=== PATIENT | male | born 1940 | race Caucasian/White ===

== ENCOUNTER 2023-10-27 11:20 | Observation (INO) | payer OTHER, MEDICARE ==
[2023-10-27] MEDS ORDERED: Sodium Chloride 0.9% 10 ML Syringe FLUSH PRN (11:50)
[2023-10-27 12:03] LABS: BASOPHILS ABSOLUTE AUTO 0.04 K/uL (0.02-0.10); BASOPHILS PERCENT AUTO 0.6 % (0.0-0.5); EOSINOPHILS ABSOLUTE AUTO 0.06 K/uL (0.04-0.40); EOSINOPHILS PERCENT AUTO 0.9 % (1.0-5.0); HEMATOCRIT 44.3 % (40.0-54.0); HEMOGLOBIN 14.7 g/dL (13.0-18.0); LYMPHOCYTES ABSOLUTE AUTO 0.85 K/uL (1.50-4.00); LYMPHOCYTES PERCENT AUTO 12.8 % (20.0-40.0); MEAN CORPUSCULAR HEMOGLOBIN 30.6 pg (27.0-32.0); MEAN CORPUSCULAR HGB CONC 33.2 g/dL (31.0-35.0); MEAN CORPUSCULAR VOLUME 92 fL (76-96); MEAN PLATELET VOLUME 11.2 fL (6.0-10.0); NEUTROPHILS ABSOLUTE AUTO 5.29 K/uL (2.00-7.50); NEUTROPHILS PERCENT AUTO 79.7 % (45.0-70.0); PLATELET COUNT,PLT 142 K/uL (150-400); RED CELL DISTRIBUTION WIDTH 13.6 % (11.0-16.0); WHITE BLOOD CELL COUNT,WBC 6.6 K/uL (4.0-11.0)
[2023-10-27 12:17] LABS: A/G RATIO 0.9 (0.8-2.0); ALBUMIN 3.2 g/dL (3.4-5.0); ANION GAP 14.7 mmol/L (5.0-15.0); BILIRUBIN TOTAL 0.7 mg/dL (0.0-1.0); BUN/CREATININE RATIO 18.1 (6-25); CALCIUM 9.2 mg/dL (8.5-10.1); CARBON DIOXIDE,CO2 27.8 mmol/L (21.0-32.0); CREATININE 2.1 mg/dL (0.70-1.30); EST CRCL DRUG DOSING (CG) 28.39 mL/min; POTASSIUM,K 4.5 mmol/L (3.5-5.1); PROTEIN TOTAL,TP 6.9 g/dL (6.4-8.2)
[2023-10-27] MEDS: Sodium Chloride 0.9% 1,000 ML IV SCH (17:10)
[2023-10-27 17:15] LABS: APPEARANCE,URINE CLEAR (CLEAR); BILIRUBIN,URINE NEGATIVE (NEGATIVE); COLOR,URINE YELLOW; GLUCOSE,URINE 500 mg/dL (NEGATIVE); KETONES,URINE TRACE mg/dL (NEGATIVE); LEUKOCYTE ESTERASE,URINE NEGATIVE (NEGATIVE); NITRITE,URINE NEGATIVE (NEGATIVE); OCCULT BLOOD,URINE SMALL (NEGATIVE); PH,URINE 5.5 (5.0-8.0); PROTEIN,URINE NEGATIVE (NEGATIVE); UROBILINOGEN,URINE 0.2 E.U./dL (0.2-1.0)
[2023-10-27 17:21] LABS: SQUAMOUS EPITHELIAL CELLS,UR FEW /HPF; WBC,URINE 0-5 /HPF
[2023-10-28 07:36] LABS: A/G RATIO 0.9 (0.8-2.0); ANION GAP 11.9 mmol/L (5.0-15.0); BILIRUBIN TOTAL 0.6 mg/dL (0.0-1.0); BUN/CREATININE RATIO 19.7 (6-25); CALCIUM 8.6 mg/dL (8.5-10.1); CARBON DIOXIDE,CO2 26.6 mmol/L (21.0-32.0); CREATININE 1.83 mg/dL (0.70-1.30); EST CRCL DRUG DOSING (CG) 28.6 mL/min; POTASSIUM,K 3.5 mmol/L (3.5-5.1); PROTEIN TOTAL,TP 6.2 g/dL (6.4-8.2); TSH ULTRASENSITIVE 2.077 uIU/mL (0.358-3.740)
[2023-10-28] MEDS: atorvaSTATin 10 MG Tab PO SCH (08:22)
[2023-10-28] MEDS: glipiZIDE 5 MG Tab.ER PO SCH (08:25)
[2023-10-28] MEDS: Finasteride 5 MG Tab PO SCH (08:25)
[2023-10-28] MEDS: Aspirin 81 MG Tab.EC PO SCH (08:26)
[2023-10-28] MEDS: Atenolol 25 MG Tab PO SCH (08:26)
[2023-10-28] MEDS: Empagliflozin 10 MG Tab PO SCH (08:26)
[2023-10-28] MEDS: Hydrochlorothiazide 25 MG Tab PO SCH (08:27)
[2023-10-28] MEDS: Tamsulosin 0.4 MG Cap.ER PO SCH (08:27)
[2023-10-28] MEDS: Cholecalciferol (Vitamin D3) 25 MCG Tab PO SCH (08:27)
[2023-10-28] MEDS: Levothyroxine 50 MCG Tab PO SCH (08:28)
[2023-10-28] MEDS: CRANBERRY FRUIT PO SCH (08:28)
[2023-10-28] MEDS: CALCIUM PO SCH (08:28)
[2023-10-28] MEDS: VITAMIN E 100 UNIT PO SCH (10:51)
== END 2023-10-28 10:38 | disposition home or self-care (01) ==
LOC: LB.ED 11:20 → INTOOBSV 15:41 → LB.MS 15:41
PROVIDERS: ADMIT Surgery; ATTEND Surgery
DX: R55 Syncope and collapse (principal); R29.6 Repeated falls; E78.5 Hyperlipidemia, unspecified; E03.9 Hypothyroidism, unspecified; E11.9 Type 2 diabetes mellitus without complications; I10 Essential (primary) hypertension; Z79.899 Other long term (current) drug therapy; Z79.890 Hormone replacement therapy
CPT/HCPCS: 36415; 70450; 71045; 80053; 81001; 82947; 84443; 84484; 85025; 93005; 99221; 99238; A0425; A0429; A9270-GY; G0378; J7030

== ENCOUNTER 2024-12-05 08:00 | Emergency (ER) | payer MEDICARE ==
[2024-12-05 09:10] LABS: BLOOD UREA NITROGEN,BUN 26.0 mg/dL (8-26); CARBON DIOXIDE,CO2 24.6 mmol/L (21.0-32.0); CHLORIDE,CL 105.0 mmol/L (98-107); CREATININE 1.85 mg/dL (0.70-1.30); EST CRCL DRUG DOSING (CG) 29.72 mL/min; ESTIMATED GFR 35.0 mL/min (>60); GLUCOSE RANDOM 215.0 mg/dL (74-100); POTASSIUM,K 3.7 mmol/L (3.5-5.1); SODIUM,NA 139.0 mmol/L (136-145)
[2024-12-05] MEDS: Sodium Phosphate,Monobasic/Sodium Phosphate,Dibasic Enema 133 ML Bottle RECTAL ONE (10:00)
[2024-12-05 11:45] VITALS: BP 144/78; PULSE 82
[2024-12-05] MEDS ORDERED: Sodium Chloride 0.9% 10 ML Syringe FLUSH PRN (12:19)
== END 2024-12-05 11:26 | disposition home or self-care (01) ==
LOC: LB.ED 08:00
DX: N40.1 Benign prostatic hyperplasia with lower urinary tract symptoms (principal); R33.8 Other retention of urine; K56.49 Other impaction of intestine; K59.04 Chronic idiopathic constipation; E78.00 Pure hypercholesterolemia, unspecified; I10 Essential (primary) hypertension; I25.2 Old myocardial infarction; E11.9 Type 2 diabetes mellitus without complications; E03.9 Hypothyroidism, unspecified; Z91.040 Latex allergy status; Z79.82 Long term (current) use of aspirin; Z95.0 Presence of cardiac pacemaker; Z95.5 Presence of coronary angioplasty implant and graft; Z79.899 Other long term (current) drug therapy
CPT/HCPCS: 36415; 51702; 80048; 93005; 99283; 99284; A9270-GY

== ENCOUNTER 2024-12-12 15:49 | Emergency (ER) | payer MEDICARE ==
[2024-12-12 16:58] LABS: MEAN PLATELET VOLUME 8.9 fL (6.0-10.0); PLATELET COUNT,PLT 240.0 K/uL (150-400); RED BLOOD CELL COUNT 3.36 M/uL (4.50-6.50); RED CELL DISTRIBUTION WIDTH 12.9 % (11.0-16.0); WHITE BLOOD CELL COUNT,WBC 7.1 K/uL (4.0-11.0)
[2024-12-12 17:17] LABS: BLOOD UREA NITROGEN,BUN 24.0 mg/dL (8-26); CARBON DIOXIDE,CO2 27.3 mmol/L (21.0-32.0); CHLORIDE,CL 105.0 mmol/L (98-107); CREATININE 1.9 mg/dL (0.70-1.30); EST CRCL DRUG DOSING (CG) 28.94 mL/min; ESTIMATED GFR 34.0 mL/min (>60); GLUCOSE RANDOM 182.0 mg/dL (74-100); POTASSIUM,K 4.3 mmol/L (3.5-5.1); SODIUM,NA 140.0 mmol/L (136-145)
[2024-12-12 17:31] LABS: INR 1.0 (1.0-3.5)
[2024-12-12 21:16] VITALS: BP 133/66; PULSE 86
== END 2024-12-12 21:10 | disposition home or self-care (01) ==
LOC: LB.ED 15:49
DX: R31.9 Hematuria, unspecified (principal); E86.0 Dehydration; I10 Essential (primary) hypertension; I25.2 Old myocardial infarction; E78.00 Pure hypercholesterolemia, unspecified; E11.9 Type 2 diabetes mellitus without complications; E03.9 Hypothyroidism, unspecified; Z95.0 Presence of cardiac pacemaker; Z79.82 Long term (current) use of aspirin; Z91.040 Latex allergy status; Z79.890 Hormone replacement therapy; Z79.899 Other long term (current) drug therapy
CPT/HCPCS: 36415; 51798; 80048; 85027; 85610; 96360; 96361; 99283; 99283-25; J7030

== ENCOUNTER 2024-12-14 21:57 | Emergency (ER) | payer MEDICARE | END 2024-12-14 23:45 | disposition home or self-care (01) | LOC: LB.ED 21:57 | DX: T83.091A Other mechanical complication of indwelling urethral catheter, initial encounter (principal); E78.00 Pure hypercholesterolemia, unspecified; I10 Essential (primary) hypertension; I25.2 Old myocardial infarction; E03.9 Hypothyroidism, unspecified; E11.9 Type 2 diabetes mellitus without complications; Z90.49 Acquired absence of other specified parts of digestive tract; Z95.0 Presence of cardiac pacemaker; Z79.82 Long term (current) use of aspirin; Z79.899 Other long term (current) drug therapy; Y84.6 Urinary catheterization as the cause of abnormal reaction of the patient, or of later complication, without mention of misadventure at the time of the procedure | CPT/HCPCS: 51798; 99283; A9270-GY ==